=== PATIENT | female | born 1950 | race Caucasian/White ===

== ENCOUNTER → 2016-08-12 | Outpatient (CLI) | payer MEDICARE, OTHER ==
--- NOTE | 2016-08-12 13:00 | REPMRS ---
Patient History The patient states she had a clinical breast exam in 08/22 Patient is postmenopausal. Family history of prostate cancer in father at age 70. Benign excisional biopsy of both breasts, 2000. Took hormonal contraceptives for 25 years. Digital Woman Screen Mammo: August 12, 2016 - Exam #: [id number] Bilateral CC and MLO view(s) were taken. Technologist: Tory Shannon, Technologist Prior study comparison: August 14, 2015, left breast digital mammo diagnostic unilateral, performed at [facility]. August 13, 2015, digital woman screen mammo performed at [facility]. November 20, 2013, bilateral bilat screen digital mammo, performed at [facility] ([facility]). FINDINGS: There are scattered fibroglandular densities. Previously noted left lateral breast cyst is again seen, slightly more prominent. This was evaluated by ultrasound August 14, 2015. There has been no change in the appearance of the mammogram from the prior studies. There is a mild amount of scattered fibroglandular density which is fairly symmetric. There is no interval development of dominant mass, architectural distortion, or clustered microcalcification suggestive of malignancy. ASSESSMENT: BI-RADS/ACR category 2 mammogram. Benign finding(s). Recommendation Routine screening mammogram in 1 year (for women over age 40). This mammogram was interpreted with the aid of an FDA-approved computer-aided dectection system. Electronically Signed By: Umesh Schwarz MD 08/12/16 1300
== END ==
LOC: M WHC 10:45
PROVIDERS: ATTEND Nurse Practitioner Women's Health
DX: Z12.31 Encounter for screening mammogram for malignant neoplasm of breast (principal); Z78.0 Asymptomatic menopausal state; Z92.0 Personal history of contraception; R92.8 Other abnormal and inconclusive findings on diagnostic imaging of breast
CPT/HCPCS: G0202; G0463

== ENCOUNTER → 2017-09-06 | Outpatient (CLI) | payer MEDICARE, OTHER | LOC: M WHC 14:23 | DX: Z12.31 Encounter for screening mammogram for malignant neoplasm of breast (principal); R92.8 Other abnormal and inconclusive findings on diagnostic imaging of breast; Z92.0 Personal history of contraception; Z98.890 Other specified postprocedural states | CPT/HCPCS: 77067 ==

== ENCOUNTER → 2018-09-07 | Outpatient (CLI) | payer MEDICARE, OTHER ==
--- NOTE | 2018-09-07 15:23 | REP ---
BILATERAL SCREENING DIGITAL MAMMOGRAM WITH 3D TOMOSYNTHESIS: There are no palpable abnormalities or other breast complaints. The the patient states she had a clinical breast examination 09/25 18. The the patient states she performs self-breast examinations four times per year. The Tyrer-Cuzick Score is: 4.7%. . Comparison is 11/20/2013 and 08/12/2016. There are scattered areas of fibroglandular density. There is no dominant mass, micro calcific cluster or architectural distortion that would indicate malignancy. There are stable sharply circumscribed nodular densities in the left breast, unchanged. There are no additional findings on 3D tomosynthesiss. There is no change from the prior study. Impression: BIRADS/ACR category 2 mammogram. Benign Findings . Recommendation: Routine annual screening mammography. This mammogram was interpreted with the aid of a FDA approved computer-aided detection system. A. Negative mammogram reports should not delay biopsy if a dominant or clinically suspicious mass is present. B. Not all breast cancers are identified by mammography or tomosynthesis. C. Adenosis and dense breasts may obscure an underlying neoplasm. Patient letter M1. Electronically Signed by Art Carson MD 09/07/2018 03:15 P
--- NOTE | 2018-09-13 13:46 | DEXA ---
AP SPINE L1 - L4 0.948 -1.9 -0.3 LT FEMUR TOTAL 0.893 -0.9 0.4 LT NECK 0.843 -1.4 0.2 RT FEMUR TOTAL 0.862 -1.2 0.2 RT NECK 0.796 -1.7 -0.1 TOTAL BODY TOTAL OTHER COMMENTS: There is low bone density of the spine and hips. The decreased density of the spine does not represent a significant change. The increased density of the left hip does not represent a significant change. The decreased density of the right hip does not represent a significant change. The density of the spine has decreased 17.8% since the initial exam on 06/19/2001. The spine density has decreased 0.6% since the most recent exam on 11/27/2015. The density of the left hip has decreased 13.2% since the initial exam on 06/19/2001. The density of the left hip has increased 0.3% since the most recent exam on 11/27/2015. The density of the right hip has decreased 12.5% since the initial exam on 06/19/2001. The density of the right hip has decreased 1.1% since the most recent exam on 11/27/2015. FOLLOW-UP: Recommendation for the next bone density exam: 2 years. KEITH
== END ==
LOC: M WHC 13:41
PROVIDERS: ATTEND Nurse Practitioner Women's Health
DX: Z12.31 Encounter for screening mammogram for malignant neoplasm of breast (principal); M85.88 Other specified disorders of bone density and structure, other site
CPT/HCPCS: 77063; 77067; 77080; G0463

== ENCOUNTER → 2019-09-09 | Outpatient (CLI) | payer MEDICARE, OTHER ==
--- NOTE | 2019-09-30 15:59 | REPMRS ---
Patient History The patient states she had a clinical breast exam in 09/2019. Patient is postmenopausal. Family history of prostate cancer at age 70 in father. Benign excisional biopsy of both breasts, 2000. Took hormonal contraceptives for 25 years. Digital Woman Screen Mammo: September 09, 2019 - Exam #: [id number] Bilateral CC and MLO view(s) were taken. Technologist: Birdie Zarate, Technologist Prior study comparison: September 07, 2018, bilateral digital woman screen mammo performed at [facility]. September 06, 2017, bilateral digital woman screen mammo performed at [facility]. August 12, 2016, digital woman screen mammo performed at [facility]. FINDINGS: There are scattered fibroglandular densities. There has been no change in the appearance of the mammogram from the prior studies. There are stable nodular densities in the left breast. There is a mild amount of scattered fibroglandular density which is fairly symmetric. There is no interval development of dominant mass, architectural distortion, or grouped microcalcification suggestive of malignancy. 3-D tomosynthesis shows no additional findings. Report was delayed due to a protracted computer network disruption experienced by this facility. Assessment: BI-RADS/ACR category 2 mammogram. Benign Findings. Recommendation Routine screening mammogram of both breasts in 1 year (for women over age 40). This patient's Lifetime Breast Cancer Risk is estimated at 4.5 %. This mammogram was interpreted with the aid of an FDA-approved computer-aided dectection system. Electronically Signed By: Umesh Schwarz MD 09/30/19 [id number]
== END ==
LOC: M WHC 08:32
PROVIDERS: ATTEND Nurse Practitioner Women's Health
DX: Z12.31 Encounter for screening mammogram for malignant neoplasm of breast (principal); Z78.0 Asymptomatic menopausal state; Z80.42 Family history of malignant neoplasm of prostate; Z86.018 Personal history of other benign neoplasm; Z92.0 Personal history of contraception
CPT/HCPCS: 77063; 77067; G0463

== ENCOUNTER → 2019-09-26 | Outpatient (REF) | payer MEDICARE, OTHER | LOC: M LAB REF 18:15 | PROVIDERS: ATTEND Internal Medicine Endocrinology, Diabetes & Metabolism | DX: E04.2 Nontoxic multinodular goiter (principal) ==